=== PATIENT | female | born 1955 | race Caucasian/White ===

== ENCOUNTER 2017-03-15 10:26 | Emergency (ER) | payer MEDICARE, BC ==
--- NOTE | 2017-03-15 11:09 | XRAY Preliminary Report ---
Exam: XR CHEST 2 VIEW PA/LAT IMPRESSION: 1. No acute abnormality. No radiographic evidence of pneumonia. 2. Mild hyperinflation, can be due to mild COPD or chronic asthma. [facility] SITE ID: [id number]
--- NOTE | 2017-03-15 11:12 | XRAY Report ---
EXAM: CHEST RADIOGRAPHY EXAM DATE: 03/15/2017 11:02 AM. CLINICAL HISTORY: Cough. COMPARISON: None. TECHNIQUE: 2 views. FINDINGS: Lungs/Pleura: No focal opacities evident. No pleural effusion. No pneumothorax. No vascular congestio n. Mild hyperinflation. Mediastinum: Heart and mediastinal contours are unremarkable. Other: None. IMPRESSION: 1. No acute abnormality. No radiographic evidence of pneumonia. 2. Mild hyperinflation, can be due to mild COPD or chronic asthma. [facility] Referring Provider Line: [phone] SITE ID: [id number]
--- NOTE | 2017-03-15 11:19 | ED Physician Documentation ---
PD HPI URI - Stated complaint Stated Complaint: CONGESTION/COUGH - Chief complaint Chief Complaint: Resp - History obtained from History obtained from: Patient - History of Present Illness Timing - onset: How many days ago (8) Timing duration: Days (8) Timing details: Gradual onset (had URI symptoms initially and then has developed deeper cough with green sputum the past 2-3 days with dyspnea.) Associated symptoms: Fever, Chills, Nasal congestion, Sore throat, Productive cough Contributing factors: No: Sick contact, Travel, Immunocompromised, COPD / asthma Similar symptoms before: Diagnosis (bronchitis and pneumonia episodes in the past; no ongoing lung problems.) Recently seen: Not recently seen Review of Systems Constitutional: reports: Fever, Chills, Myalgias Nose: reports: Rhinorrhea / runny nose, Congestion Throat: denies: Dental pain / toothache, Sore throat Cardiac: denies: Chest pain / pressure, Palpitations Respiratory: reports: Dyspnea, Cough. denies: Wheezing GI: reports: Nausea. denies: Abdominal Pain, Vomiting, Diarrhea : denies: Dysuria, Frequency Skin: denies: Rash PD PAST MEDICAL HISTORY - Past Medical History Past Medical History: Yes Respiratory: None Musculoskeletal: Osteoarthritis Other Past Medical History: Ehlars syndrome. Thoracic outlet syndrome - Past Surgical History Past Surgical History: Yes Ortho: Knee replacement, Shoulder arthroplasty - Present Medications Home Medications: Ambulatory Orders Medication Instructions Recorded Confirmed Acyclovir 200 mg PO DAILY 03/15/17 03/15/17 Albuterol Sulf [Ventolin Hfa 1 - 2 puffs INH Q4HR PRN #1 inhaler 03/15/17 Inhaler] Azithromycin [Zithromax] 250 mg PO DAILY #6 tablet 03/15/17 Celecoxib [Celebrex] 50 mg PO DAILY 03/15/17 03/15/17 Dexamethasone [Decadron] 4 mg PO DAILY #5 tablet 03/15/17 Fluticasone [Flonase] 1 sprays DENISE DAILY 03/15/17 03/15/17 HYDROcodone/ACET 7.5/325 [[place] 1 each PO Q6H 03/15/17 03/15/17 7.5/325] Loratadine [Claritin] 10 mg PO DAILY 03/15/17 03/15/17 Methocarbamol 750 mg PO TID 03/15/17 03/15/17 guaiFENesin/CODEINE [Robitussin AC] 10 ml PO Q6H PRN #240 ml 03/15/17 traMADol [Ultram] 50 mg PO ONCE 03/15/17 03/15/17 - Allergies Allergies/Adverse Reactions: Allergies Allergy/AdvReac Type Severity Reaction Status Date / Time No Known Drug Allergies Allergy Verified 03/15/17 12:43 - Social History Does the pt smoke?: No Smoking Status: Never smoker Does the pt drink ETOH?: No Does the pt have substance abuse?: No - Immunizations Immunizations are current?: Yes - POLST Patient has POLST: No PD ED PE NORMAL - Vitals Vital signs reviewed: Yes - General General: Alert and oriented X 3, No acute distress, Well developed/nourished - HEENT HEENT: Ears normal, Pharynx benign - Neck Neck: Supple, no meningeal sign, No adenopathy - Cardiac Cardiac: RRR, No murmur - Respiratory Respiratory: Clear bilaterally - Abdomen Abdomen: Soft, Non tender - Derm Derm: Normal color, Warm and dry, No rash - Neuro Neuro: Alert and oriented X 3, No motor deficit, Normal speech Results - Vitals Vitals: Vital Signs - 24 hr 03/15/17 03/15/17 10:32 12:37 Temperature 36.9 C 3.2 C L Heart Rate 79 65 Respiratory 18 12 Rate Blood Pressure 107/76 115/55 L O2 Saturation 99 98 Oxygen O2 Source Room air - Rads (name of study) chest Radiology: Prelim report reviewed (no acute process) PD MEDICAL DECISION MAKING - ED course Complexity details: reviewed results, considered differential, d/w patient Departure - Departure Disposition: 01 Home, Self Care Clinical Impression: Upper respiratory infection Qualifiers: URI type: unspecified URI Qualified Code(s): J06.9 - Acute upper respiratory infection, unspecified Condition: Stable Record reviewed to determine appropriate education?: Yes Instructions: ED Upper Resp Infec Abx Tx Follow-Up: Antione Adams MD [Primary Care Provider] - Prescriptions: Albuterol Sulf [Ventolin Hfa Inhaler] 1 - 2 puffs INH Q4HR PRN #1 inhaler PRN Reason: Shortness Of Air/Wheezing Azithromycin [Zithromax] 250 mg PO DAILY #6 tablet Dexamethasone [Decadron] 4 mg PO DAILY #5 tablet guaiFENesin/CODEINE [Robitussin AC] 10 ml PO Q6H PRN #240 ml PRN Reason: Cough Comments: Drink lots of fluids. This may still be just a viral illness but you have indicators that sound possibly bacterial. Use albuterol inhaler 2 puffs 4 times a day and extra times as needed for wheezing and to improve breathing. Decadron anti-inflammatory daily for 5 days to decrease inflammation. Zithromax antibiotic for potential of bacterial infection. Add cough medicine if needed. Tylenol or ibuprofen if needed for fevers or pains. I would expect gradual improvement over the next 3-5 days. Forms: Activity restrictions Discharge Date/Time: 03/15/17 11:56
[2017-03-15 12:42] VITALS: BP 115/55
== END 2017-03-15 11:56 | disposition home or self-care (01) ==
LOC: ED 10:26
DX: J06.9 Acute upper respiratory infection, unspecified (principal); M19.90 Unspecified osteoarthritis, unspecified site; Q79.6 Ehlers-Danlos syndromes
CPT/HCPCS: 71020; 99283

== ENCOUNTER 2018-11-14 09:37 | Outpatient (CLI) | payer MEDICARE | END 2018-11-14 09:38 | disposition short-term general hospital (02) | LOC: EMS 09:37 | PROVIDERS: ATTEND Surgery | DX: F41.9 Anxiety disorder, unspecified (principal) | CPT/HCPCS: A0425; A0429 ==